=== PATIENT | male | born 1965 | race Caucasian/White ===

== ENCOUNTER 2023-07-17 04:32 | Inpatient (IN) | payer SELFPAY ==
[2023-07-17] VITALS (7 sets, daily range): BP systolic 94–162; BP diastolic 52–102
[~2023-07-17] VITALS: Ht 167.6 cm; Wt 63.2 kg
[~2023-07-17 04:32] MED LIST: HYDROCODONE BIT1 T11 PO; IBUPROFEN800 MG PO; Motrin,Rufen800 MG PO; PERCOCET 325 MG1 TA2 PO
[2023-07-17] MEDS ORDERED: Albuterol Sulf/Ipratropium 3 ML VIAL NEB ONE ×2 (04:45)
[2023-07-17] MEDS ORDERED: methylPREDNISolone sod succ 125 MG VIAL IV ONE (05:00)
[2023-07-17 05:07] LABS: ACT PARTIAL THROMBO TIME 28.5 SECONDS (20.0-32.1)
[2023-07-17 05:19] LABS: ALKALINE PHOSPHATASE 107 U/L (46-116); BUN 24 mg/dl (9-23); CHLORIDE 104 mmol/L (98-107); POTASSIUM 4.6 mmol/L (3.4-5.1); SGPT/ALT 56 U/L (5-49)
[2023-07-17 06:19] LABS: BASO # 0.1 10*3/uL (0.0-0.1); BASO % 0.6 % (0.0-1.0); EOS # 0.2 10*3/uL (0.0-0.4); EOS % 1.5 % (1.0-4.0); HEMATOCRIT 51.8 % (42.0-52.0); LYMPH # 2.5 10*3/uL (1.3-4.4); LYMPH % 20.4 % (27.0-41.0); MEAN CELL VOLUME 97.9 fl (80.0-94.0); MEAN CORPUSCULAR HGB 31.2 pg (27.0-31.0); MEAN CORPUSCULAR HGB CONC 31.9 g/dl (33.0-37.0); MEAN PLATELET VOLUME 12.8 fl (9.6-12.3); MONO # 1.1 10*3/uL (0.1-1.0); MONO % 8.6 % (3.0-9.0); NEUT # 8.5 10*3/uL (2.3-7.9); NEUT % 68.6 % (47.0-73.0); PLATELET COUNT AUTOMATED 216 10*3/uL (130-400); RED BLOOD COUNT 5.29 10*6/uL (4.50-5.90); RED CELL DISTRI WIDTH 12.9 % (0-14.5); WHITE BLOOD COUNT 12.4 10*3/uL (4.8-10.8)
[2023-07-17] MEDS ORDERED: HEPARIN SODIUM 250 ML IV SCH (07:10)
[2023-07-17] MEDS ORDERED: MORPHINE Sulfate 2 MG/ML SYR IV PRN (07:40)
[2023-07-17] MEDS ORDERED: Acetaminophen/Hydrocodone 5 MG/325 MG TABLET PO PRN (07:40)
[2023-07-17] MEDS ORDERED: TEMAZEPAM 15 MG CAP PO PRN (07:40)
[2023-07-17] MEDS ORDERED: BISACODYL 5 MG TAB PO PRN (07:40)
[2023-07-17] MEDS ORDERED: Magnesium Hydroxide 30 ML UDC PO PRN (07:40)
[2023-07-17] MEDS ORDERED: ACETAMINOPHEN 325 MG TAB PO PRN (07:40)
[2023-07-17] MEDS ORDERED: Ondansetron Hydrochloride 4 MG/2 ML VIAL IV PRN (07:40)
[2023-07-17] MEDS ORDERED: Albuterol Sulf/Ipratropium 3 ML VIAL NEB SCH (07:40)
[2023-07-17] MEDS ORDERED: ASPIRIN 325 MG TAB PO ONE (07:40)
[2023-07-17] MEDS ORDERED: SODIUM CHLORIDE 0.9% 1,000 ML IV SCH (07:45)
[2023-07-17] MEDS ORDERED: Metoprolol Tartrate 25 MG TAB PO SCH (07:45)
[2023-07-17] MEDS ORDERED: Ceftriaxone Sodium 10 ML IV ONE (07:55)
[2023-07-17] MEDS ORDERED: FUROSEMIDE 40 MG/4 ML VIAL IV SCH (07:55)
[2023-07-17] MEDS ORDERED: AZITHROMYCIN 250 ML IV SCH (09:00)
[2023-07-17] MEDS ORDERED: ATORVASTATIN CALCIUM 40 MG TABLET PO SCH (10:00)
[2023-07-17] MEDS ORDERED: GUAIFENESIN 600 MG TAB ER PO SCH (10:00)
[2023-07-17] MEDS ORDERED: hydrOXYzine 50 MG CAP PO PRN (15:25)
[2023-07-17] MEDS ORDERED: Dicyclomine Hydrochloride 20 MG TAB PO PRN (15:25)
[2023-07-17] MEDS ORDERED: METHOCARBAMOL 750 MG TAB PO PRN (15:25)
[2023-07-17] MEDS ORDERED: LORazepam 1 MG TAB PO SCH (16:00)
[2023-07-17] MEDS ORDERED: Nicotine 21 MG PATCH T SCH (17:03)
[2023-07-17 21:36] LABS: BUN 28 mg/dl (9-23); CHLORIDE 99 mmol/L (98-107)
[2023-07-17] MEDS ORDERED: METOPROLOL SUCCINATE XR 25 MG TAB PO SCH (22:00)
[2023-07-17] MEDS ORDERED: methylPREDNISolone sod succ 40 MG VIAL IV SCH (22:00)
[2023-07-17] MEDS ORDERED: MAGNESIUM SULFATE 50 ML IV ONE (22:25)
[2023-07-18] VITALS: BP 130/7
[2023-07-18 06:30] LABS: ALKALINE PHOSPHATASE 88 U/L (46-116); BUN 23 mg/dl (9-23); CHLORIDE 102 mmol/L (98-107); CHOLESTEROL 159 mg/dL (<200); FREE T4 0.84 ng/dl (0.89-1.76); LDL CHOLESTEROL 92 mg/dL (9-159); POTASSIUM 4.3 mmol/L (3.4-5.1); SGPT/ALT 34 U/L (5-49); TOTAL PROTEIN 6.3 gm/dL (6.0-8.0); TRIGLYCERIDES 64 mg/dl (<150)
[2023-07-18 06:57] LABS: HEMATOCRIT 46.9 % (42.0-52.0); MEAN CELL VOLUME 95.5 fl (80.0-94.0); MEAN CORPUSCULAR HGB 31.2 pg (27.0-31.0); MEAN CORPUSCULAR HGB CONC 32.6 g/dl (33.0-37.0); MEAN PLATELET VOLUME 12.8 fl (9.6-12.3); PLATELET COUNT AUTOMATED 172 10*3/uL (130-400); RED BLOOD COUNT 4.91 10*6/uL (4.50-5.90); RED CELL DISTRI WIDTH 12.8 % (0-14.5); WHITE BLOOD COUNT 18.5 10*3/uL (4.8-10.8)
[2023-07-18 06:59] LABS: MANUAL DIFF REFLEX YES
[2023-07-18 07:36] LABS: PLATELET SUFFICIENCY NORMAL (NORMAL); POLYCHROMASIA SLIGHT; TOTAL CELLS COUNTED 100 #CELLS
[2023-07-18 08:00] VITALS: BP 111/78
[2023-07-18] MEDS ORDERED: Ceftriaxone Sodium 1 GM in SYRINGE INFUSION 10 ML IV SCH (08:00)
[2023-07-18] MEDS ORDERED: ASPIRIN ENTERIC COATED 81 MG TAB PO SCH (10:00)
[2023-07-18] MEDS ORDERED: FOLIC ACID 0.4 MG TAB PO SCH (10:00)
[2023-07-18] MEDS ORDERED: MULTIVITAMIN 1 TAB TAB PO SCH (10:00)
[2023-07-18] MEDS ORDERED: Thiamine 100 MG TAB PO SCH (10:00)
[2023-07-18] MEDS ORDERED: EMPAGLIFLOZIN 10 MG TABLET PO SCH (10:00)
[2023-07-18 12:00] VITALS: BP 129/82
[2023-07-18] MEDS ORDERED: JARDIANCE10 MG PO (14:29)
[2023-07-18] MEDS ORDERED: ATORVASTATIN CA40 M1 PO (14:29)
[2023-07-18] MEDS ORDERED: METOPROLOL SUCC25 M2 PO (14:29)
[2023-07-18] MEDS ORDERED: ASPIRIN ADULT L81 M2 PO (14:29)
[2023-07-18] MEDS ORDERED: VITAMIN D350 MCG PO (14:29)
[2023-07-18 16:00] VITALS: BP 103/69
[2023-07-18] MEDS ORDERED: LORazepam 1 MG TAB PO SCH (18:00)
[2023-07-18 20:00] VITALS: BP 102/65
[2023-07-18] MEDS ORDERED: SACUBITRIL/VALSARTAN 24 MG-26 MG TABLET PO SCH (22:00)
[2023-07-19] VITALS: BP 98/57
[2023-07-19 06:43] LABS: HEMATOCRIT 49.7 % (42.0-52.0); MEAN CELL VOLUME 92.6 fl (80.0-94.0); MEAN CORPUSCULAR HGB 31.3 pg (27.0-31.0); MEAN CORPUSCULAR HGB CONC 33.8 g/dl (33.0-37.0); MEAN PLATELET VOLUME 12.8 fl (9.6-12.3); PLATELET COUNT AUTOMATED 221 10*3/uL (130-400); RED BLOOD COUNT 5.37 10*6/uL (4.50-5.90); WHITE BLOOD COUNT 21.5 10*3/uL (4.8-10.8)
[2023-07-19 06:44] LABS: BUN 30 mg/dl (9-23); CHLORIDE 100 mmol/L (98-107); POTASSIUM 4.2 mmol/L (3.4-5.1)
[2023-07-19 06:46] LABS: MANUAL DIFF REFLEX YES
[2023-07-19 07:23] LABS: BURR CELLS FEW; PLATELET SUFFICIENCY NORMAL (NORMAL); POLYCHROMASIA SLIGHT; SCHISTOCYTES FEW; TOTAL CELLS COUNTED 100 #CELLS
[2023-07-19 08:00] VITALS: BP 99/57
[2023-07-19] MEDS ORDERED: Cholecalciferol 2,000 UNIT TABLET (50 MCG) PO SCH (10:00)
[2023-07-19 12:00] VITALS: BP 90/69
[2023-07-19] MEDS ORDERED: LORazepam 1 MG TAB PO PRN (12:00)
[2023-07-19 16:00] VITALS: BP 85/67
[2023-07-19 20:00] VITALS: BP 92/66
[2023-07-20] VITALS: BP 92/58
[2023-07-20 06:30] LABS: BUN 34 mg/dl (9-23); CHLORIDE 97 mmol/L (98-107)
[2023-07-20 06:31] LABS: POTASSIUM 5.3 mmol/L (3.4-5.1)
[2023-07-20 06:36] LABS: BASO % 0.1 % (0.0-1.0); EOS % 0.1 % (1.0-4.0); HEMATOCRIT 55.1 % (42.0-52.0); LYMPH % 10.9 % (27.0-41.0); MEAN CELL VOLUME 94.5 fl (80.0-94.0); MEAN CORPUSCULAR HGB 31.4 pg (27.0-31.0); MEAN CORPUSCULAR HGB CONC 33.2 g/dl (33.0-37.0); MEAN PLATELET VOLUME 12.2 fl (9.6-12.3); MONO # 1.4 10*3/uL (0.1-1.0); MONO % 7.8 % (3.0-9.0); NEUT # 14.4 10*3/uL (2.3-7.9); NEUT % 80.5 % (47.0-73.0); PLATELET COUNT AUTOMATED 212 10*3/uL (130-400); RED BLOOD COUNT 5.83 10*6/uL (4.50-5.90); RED CELL DISTRI WIDTH 13.2 % (0-14.5); WHITE BLOOD COUNT 17.9 10*3/uL (4.8-10.8)
[2023-07-20 08:00] VITALS: BP 95/64
[2023-07-20] MEDS ORDERED: ENTRESTO 24 MG1 EACH PO (08:53)
== END 2023-07-20 10:05 | disposition short-term general hospital (02) | DRG 871 ==
LOC: ED 04:32 → EDHOLD 07:13 → 4E 07:13 → EDHOLD 07:14 → 4E 12:59
PROVIDERS: Emergency Medicine; Family Medicine; Student in an Organized Health Care Education/Training Program; ADMIT Internal Medicine; ATTEND Internal Medicine
DX: A41.89 Other specified sepsis (principal); I21.4 Non-ST elevation (NSTEMI) myocardial infarction; J96.01 Acute respiratory failure with hypoxia; J44.1 Chronic obstructive pulmonary disease with (acute) exacerbation; E87.1 Hypo-osmolality and hyponatremia; J98.4 Other disorders of lung; R73.9 Hyperglycemia, unspecified; I50.9 Heart failure, unspecified; R65.20 Severe sepsis without septic shock; R74.01 Elevation of levels of liver transaminase levels; F17.210 Nicotine dependence, cigarettes, uncomplicated; F12.90 Cannabis use, unspecified, uncomplicated; F41.1 Generalized anxiety disorder; E55.9 Vitamin D deficiency, unspecified; F10.20 Alcohol dependence, uncomplicated; I25.2 Old myocardial infarction; Z82.49 Family history of ischemic heart disease and other diseases of the circulatory system; Z71.6 Tobacco abuse counseling